=== PATIENT | male | born 1950 | race Caucasian/White ===

== ENCOUNTER → 2018-01-17 | Outpatient (CLI) | payer MEDICARE ==
[~2018-01-17] MED LIST: ASCO500T12 PO; ASPI-621 PO; ASPI-650 PO; ASPI1CPM7 PO; CINN500C2 PO; CLOP75TA PO; DOXA1TAB2 PO; GLIM2TAB2 PO; HYDR12.58 PO; NUEDEXTA HOMEMEDPO; SIMV40TA PO; VALS160T3 PO; VITAMIN E; vitamin b 12; zanaflex
== END | disposition home or self-care (01) ==
LOC: CFH 12:19
PROVIDERS: ATTEND Surgery
DX: I65.23 Occlusion and stenosis of bilateral carotid arteries (principal); Z86.73 Personal history of transient ischemic attack (TIA), and cerebral infarction without residual deficits
CPT/HCPCS: 93880

== ENCOUNTER → 2018-02-04 | Outpatient (CLI) | payer MEDICARE ==
[~2018-02-04] MED LIST changes: +OMNIPAQUE 350 MG/ML, 100ML BOTTLE ONE
[2018-02-04 13:56] LABS: CREATININE 0.69 mg/dL (0.7-1.3)
== END | disposition home or self-care (01) ==
LOC: RAD 13:09
PROVIDERS: ATTEND Surgery
DX: I65.23 Occlusion and stenosis of bilateral carotid arteries (principal); E11.9 Type 2 diabetes mellitus without complications; J44.9 Chronic obstructive pulmonary disease, unspecified; Z86.73 Personal history of transient ischemic attack (TIA), and cerebral infarction without residual deficits
CPT/HCPCS: 36415; 70498; 82565; Q9967

== ENCOUNTER → 2019-09-22 | Outpatient (CLI) | payer MEDICARE ==
[~2019-09-22] MED LIST changes: +ASCO-254 PO; -ASCO500T12 PO; -ASPI-621 PO; +ASPI81TA45 PO; -GLIM2TAB2 PO; +GLIM2TAB7 PO; -HYDR12.58 PO; +HYDROCHLOROTH12.5 MG PO; -OMNIPAQUE 350 MG/ML, 100ML BOTTLE ONE; +OMNIPAQUE 350 MG/ML, 150 ML BOTTLE ONE
== END | disposition home or self-care (01) ==
LOC: CFH 14:33
PROVIDERS: ATTEND Physician Assistant
DX: N40.0 Benign prostatic hyperplasia without lower urinary tract symptoms (principal); N28.89 Other specified disorders of kidney and ureter; Z87.448 Personal history of other diseases of urinary system
CPT/HCPCS: 74178; Q9967

== ENCOUNTER 2020-01-10 16:11 | Emergency (ER) | payer MEDICARE ==
[~2020-01-10] VITALS: Ht 162.6 cm; Wt 80.0 kg
[~2020-01-10 16:11] MED LIST changes: -ASCO-254 PO; +ASCO500T93 PO; -OMNIPAQUE 350 MG/ML, 150 ML BOTTLE ONE
[2020-01-10] MEDS ORDERED: MORPHINE SULFATE 4 MG/ML, 1ML ONE (16:56)
[2020-01-10] MEDS ORDERED: ACETAMINOPHEN 325 MG TABLET ONE (16:56)
[2020-01-10] MEDS ORDERED: MORPHINE SULFATE 4 MG/ML, 1ML IVPush PRN (17:00)
[2020-01-10] MEDS ORDERED: ACETAMINOPHEN 325 MG TABLET PO ONE (17:00)
[2020-01-10] MEDS ORDERED: SODIUM CHLORIDE FLUSH 10ML SYR IVF ONE (17:00)
[2020-01-10] MEDS ORDERED: SODIUM CHLORIDE 0.9% 1,000ML IVBOLUS ONE (17:00)
--- NOTE | 2020-01-10 17:03 | NUR ---
PT UPRIGHT ON GURNEY AWAKE & CALM, RESPONDS APPROP TO STAFF, HENDRICKS CLAMPED TO AWAIT UA SAMPLE, COMFORT MEASURES PROVIDED, AT BS, CALL LIGHT WITHIN REACH.
[2020-01-10 17:58] LABS: MEAN CORPUSCULAR HEMOGLOBIN 30.7 pg (27.5-34.5); MEAN CORPUSCULAR HGB CONC 32.6 g/dL (33.2-36.2); MEAN CORPUSCULAR VOLUME 94.2 fL (81-97); PLATELET COUNT 231 x10^3/uL (130-400); RED BLOOD COUNT 4.47 x10^6/uL (4.38-5.82); RED CELL DISTRIBUTION WIDTH 13.3 % (9.4-14.8)
--- NOTE | 2020-01-10 18:03 | NUR ---
PT UPRIGHT ON GURNEY AWAKE & MORE COMFORTABLE AFTER PAIN MEDS, TALKING ON CELLPHONE, NAD, RESPONDS APPROP TO STAFF, UNABLE TO OBTAIN UA SAMPLE AFTER HENDRICKS CLAMPED >60MINS- PA AWARE, COMFORT MEASURES PROVIDED, CALL LIGHT WITHIN REACH.
[2020-01-10 18:05] LABS: ALANINE AMINOTRANSFERASE 22 U/L (12-78); ALBUMIN 3.7 g/dL (3.4-5.0); ANION GAP 6 mmol/L (5-15); BASOPHILS # (AUTO) 0.04 x10^3/uL (0-0.1); BASOPHILS % (AUTO) 0 % (0-1); CALCIUM 8.9 mg/dL (8.5-10.1); CHLORIDE 111 mmol/L (98-107); CREATININE 0.75 mg/dL (0.7-1.3); EOSINOPHILS # (AUTO) 0.22 x10^3/uL (0-0.4); EOSINOPHILS % (AUTO) 2 % (1-7); LYMPHOCYTES # (AUTO) 0.96 x10^3/uL (1-3.4); LYMPHOCYTES % (AUTO) 10 % (22-44); MONOCYTES # (AUTO) 0.64 x10^3/uL (0.2-0.8); MONOCYTES % (AUTO) 7 % (2-9); NEUTROPHILS # (AUTO) 7.92 x10^3/uL (1.8-6.8); NEUTROPHILS % (AUTO) 81 % (42-75)
[2020-01-10 18:06] LABS: MD NO
[2020-01-10 18:07] LABS: ALKALINE PHOSPHATASE 73 U/L (45-117); BILIRUBIN,TOTAL 0.6 mg/dL (0.2-1.0); TOTAL PROTEIN 7.5 g/dL (6.4-8.2)
--- NOTE | 2020-01-10 19:04 | NUR ---
REPORT GIVEN TO REYES. BLADDER SCAN= 228ML, PT REQUIRED 200ML FLUSH TO OBTAIN HENDRICKS CATH PATENCY, PT TOLERATED WITH MILD DISCOMFORT, UA SAMPLE OBTAINED & SENT, DR BOX AWARE OF DILUTED SAMPLE.
--- NOTE | 2020-01-10 19:05 | NUR ---
REPORT FROM OG MEJIAS ASSUMING CARE OF PT AT THIS TIME
[2020-01-10 19:20] LABS: MICROSCOPIC INDICATED
[2020-01-10] MEDS ORDERED: CEFTRIAXONE PMX 1GM/50ML 50 ML IV ONE (20:00)
[2020-01-10] MEDS ORDERED: FOSFOMYCIN 3 GM PACKET PO ONE (20:05)
[2020-01-10] MEDS ORDERED: CEFTRIAXONE PMX 1GM/50ML 50 ML ONE (20:31)
[2020-01-10] MEDS ORDERED: FOSFOMYCIN 3 GM PACKET ONE (20:40)
[2020-01-10 20:46] VITALS: BP 117/57
--- NOTE | 2020-01-10 20:46 | NUR ---
PT MEDICATED PER SARA MOISE, TOLERATED WELL. PT TO CALL FOR RIDE HOME
== END 2020-01-10 21:37 | disposition home or self-care (01) ==
LOC: ED 16:41
DX: S22.31XA Fracture of one rib, right side, initial encounter for closed fracture (principal); S20.212A Contusion of left front wall of thorax, initial encounter; N30.01 Acute cystitis with hematuria; N20.0 Calculus of kidney; E11.9 Type 2 diabetes mellitus without complications; Z86.73 Personal history of transient ischemic attack (TIA), and cerebral infarction without residual deficits; X58.XXXA Exposure to other specified factors, initial encounter; Y92.89 Other specified places as the place of occurrence of the external cause; Y93.89 Activity, other specified; Y99.0 Civilian activity done for income or pay
CPT/HCPCS: 36415; 71101; 80053; 81001; 83605; 85025; 87040; 87077; 87086; 87106; 87186; 96361; 96374; 96375; 99285; J0696; J2270; J7030